=== PATIENT | male | born 1995 | race Caucasian/White ===

== ENCOUNTER 2022-07-08 16:44 | Emergency (ER) | payer OTHER ==
[~2022-07-08] VITALS: Ht 182.9 cm; Wt 79.5 kg
[2022-07-08 16:46] VITALS: BP 145/81
== END 2022-07-08 19:13 | disposition home or self-care (01) ==
LOC: M ED 16:44
DX: S16.1XXA Strain of muscle, fascia and tendon at neck level, initial encounter (principal); V48.5XXA Car driver injured in noncollision transport accident in traffic accident, initial encounter; Y92.410 Unspecified street and highway as the place of occurrence of the external cause